=== PATIENT | female | born 1935 | race Caucasian/White ===

== ENCOUNTER 2023-07-10 07:52 | Emergency (ER) | payer MEDICARE, OTHER, SELFPAY ==
--- NOTE | ~2023-07-10 | US_ITS ---
EXAMINATION: US right upper quadrant DATE: 07/10/2023 08:51 INDICATION: Abdominal with pain TECHNIQUE: Multiple grayscale and Doppler ultrasound images of the abdomen were obtained. COMPARISON: None FINDINGS: The pancreatic head and body are normal in appearance. The pancreatic tail is not visualized. The vi sualized proximal abdominal aorta and inferior vena cava are normal. Liver has normal echogenicity an d contour, with a smooth surface. No liver lesion identified. No intrahepatic biliary duct dilation s uspected. Portal venous flow was seen in the hepatopetal, normal direction and has normal Doppler wav eform. The gallbladder is normal in appearance. There is no cholelithiasis. The common bile duct danie sures 5 mm, which is normal. Sonographic [place] sign was reported as negative by the ski instructor. IMPRESSION: 1. Normal right upper quadrant ultrasound. Reviewed, dictated and finalized at location B. 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
[2023-07-10 08:06] VITALS: BP 193/81; PULSE 74; RESP 20; TEMP 36.6; O2SAT 100
[2023-07-10 08:30] LABS: Alanine Aminotransferase 26 U/L (6-35); Albumin Level 4.4 g/dL (3.5-5.1); Alkaline Phosphatase 77 U/L (38-126); Anion Gap 6 mmol/L (8-16); Aspartate Amino Transferase 32 U/L (14-36); Basophils Percent Auto 0.4 % (0.2-1.2); Bilirubin,Total 0.9 mg/dL (0.2-1.3); Blood Urea Nitrogen 13 mg/dL (7-17); Calcium 9.6 mg/dL (8.4-10.2); Carbon Dioxide 26 mmol/L (22-30); Chloride 97 mmol/L (98-107); Eosinophils Absolute Auto 0.1 K/mm3 (0-0.3); Eosinophils Percent Auto 2.1 % (0-4.4); Estimated CRCL calculation 41 ml/min; Estimated Glomerular Filt Rate > 60; Glucose 112 mg/dL (65-110); Hematocrit 44.4 % (37.0-47.0); Hemoglobin 14.3 g/dL (12.0-15.0); Immature Granulocyte Absolute 0.01 K/mm3 (0.00-0.031); Immature Granulocyte Percent A 0.1 % (0-0.5); Lipase 322 U/L (23-300); Lymphocytes Absolute Auto 1.62 K/mm3 (0.9-3.2); Lymphocytes Percent Auto 24.1 % (18.3-44.2); Mean Corpuscular HGB Conc 32.2 g/dl (32-36); Mean Corpuscular Hemoglobin 28.5 pg (26-34); Mean Corpuscular Volume 88.6 fl (80-100); Mean Platelet Volume 9.6 fl (7.4-10.4); Monocytes Absolute Auto 0.6 K/mm3 (0.1-0.6); Monocytes Percent Auto 8.2 % (2.6-8.5); Neutrophils Absolute Auto 4.4 K/mm3 (1.3-6.7); Neutrophils Percent Auto 65.1 % (45.5-73.1); Platelet Count Result 375 k/mm3 (150-375); Potassium 3.8 mmol/L (3.4-5.0); Red Blood Count 5.01 M/mm3 (4.2-5.4); Sodium 129 mmol/L (137-145); White Blood Count 6.7 K/mm3 (4.5-10.0)
[2023-07-10 08:39] VITALS: BP 174/83; PULSE 73; RESP 12; O2SAT 100
[2023-07-10 09:16] LABS: Appearance Urine Turbid (Clear); Bacteria Urine 4+ /hpf; Bilirubin Urine Negative (Negative); Blood Urine Negative (Negative); Color Urine Yellow (Yellow); Glucose Urine UA Negative (Negative); Ketones Urine Negative (Negative); Leukocyte Esterase Ur Trace LEU/UL (Negative); Nitrate Urine Positive (Negative); Non Pathogenic Casts 0-2; Protein Urine Negative (Negative); RBC Urine 0-2 /hpf (0-2); Specific Grav Ur 1.012 (1.001-1.035); Squamous Epithelial Cell Urine None seen /hpf (Few); Urobilinogen Urine 0.2 mg/dL (<2.0)
[2023-07-10 09:18] LABS: Add Urine Microscopic? YES
[2023-07-10] MEDS: BELLADONNA ALK/PHENOB ELIX 10 ML, MAG HYDROX/ALUMINUM HYD/SIMETH 30 ML, LIDOCAINE HCL 2... PO (09:29)
[2023-07-10 09:30] VITALS: BP 172/68; PULSE 66; RESP 18; O2SAT 99
--- NOTE | 2023-07-10 09:45 | ED.GENADULT ---
HPI - General Adult General Chief complaint: Abdominal Pain Stated complaint: ABD PAIN Time Seen by Provider: 07/10/23 07:56 History of Present Illness HPI narrative: patient is an 88-year-old female who presents ER with epigastric abdominal pain. Ongoing for 1 week. She has tried some Tums without any real relief. She has had some minor acid reflux with this as well and is concerned that she may have an ulcer. She has no modification in her discomfort with eating or drinking. No radiation to her back. No fevers or chills or sweats. Denies urinary symptoms. Related Data Home Medications Medication Instructions Recorded Confirmed lisinopril 20 mg tablet 40 mg 07/10/23 Allergies Allergy/AdvReac Type Severity Reaction Status Date / Time No Known Allergies Allergy Unknown Verified 07/10/23 08:11 Review of Systems Review of Systems: All systems reviewed & are unremarkable except as noted in HPI and below Constitutional: Constitutional: Reports no additional constitutional complaints ENT: Reports system reviewed and no additional complaints, except as documented Cardiovascular: Cardiovascular: Reports no additional cardiovascular complaints Respiratory: Respiratory: Reports no additional respiratory complaints Gastrointestinal: Gastrointestinal: Reports abdominal pain, Denies diarrhea, Denies nausea and Denies vomiting Genitourinary: Genitourinary: Reports no additional female genitourinary complaints PMFSH Past Medical History Medical History (Updated 07/10/23 @ 09:50 by Man Fairbanks MD) Hypertension Surgical History Surgical History (Updated 07/10/23 @ 09:50 by Man Faribanks MD) History of hysterectomy Exam Narrative: GENERAL: Well-appearing, well-nourished, and in no acute distress. HEAD: Normocephalic, atraumatic. ENT: Mucous membranes moist. CHEST: Clear to auscultation. No respiratory distress. HEART: Regular rate and rhythm. Normal peripheral pulses. ABDOMEN: Soft, nontender, nondistended. EXTREMITIES: Normal range of motion. No edema. SKIN: Warm, dry, no rash. NEURO: Alert and oriented x3. PSYCH: Normal mood and affect. Course Course Emergency Course: -Course: no issues. -Co-morbidities complicating care: Advanced age -Social determinants of health: lives at home -External Chart Review: none -Hx from independent Sources: patient -Independent interpretation of studies: UA consistent with UTI. No gallstones. -Interventions: GI cocktail -Shared decision making / Disposition: discharge home with oral antibiotic. Patient will start pantoprazole after finishing her antibiotics. Vital Signs Vital signs: Vital Signs Temperature 97.8 F 07/10/23 08:06 Pulse Rate 74 07/10/23 08:06 Respiratory Rate 20 07/10/23 08:06 Blood Pressure 193/81 H 07/10/23 08:06 Pulse Oximetry 100 07/10/23 08:06 Oxygen Delivery Room Air 07/10/23 08:06 Temperature 97.8 F 07/10/23 08:06 Pulse Rate 66 07/10/23 09:30 Respiratory Rate 18 07/10/23 09:30 Blood Pressure 172/68 H 07/10/23 09:30 Pulse Oximetry 99 07/10/23 09:30 Oxygen Delivery Room Air 07/10/23 08:06 Medical Decision Making Vital Signs Vital Signs: Vital Signs Temperature 97.8 F 07/10/23 08:06 Pulse Rate 74 07/10/23 08:06 Respiratory Rate 20 07/10/23 08:06 Blood Pressure 193/81 H 07/10/23 08:06 Pulse Oximetry 100 07/10/23 08:06 Oxygen Delivery Room Air 07/10/23 08:06 Temperature 97.8 F 07/10/23 08:06 Pulse Rate 66 07/10/23 09:30 Respiratory Rate 18 07/10/23 09:30 Blood Pressure 172/68 H 07/10/23 09:30 Pulse Oximetry 99 07/10/23 09:30 Oxygen Delivery Room Air 07/10/23 08:06 Lab Data 07/10/23 08:14 07/10/23 08:14 Labs: Lab Results 07/10/23 07/10/23 Range/Units 08:14 09:02 WBC 6.7 (4.5-10.0) K/mm3 RBC 5.01 (4.2-5.4) M/mm3 Hgb 14.3 (12.0-15.0) g/dL Hct 44.4
== END 2023-07-10 09:56 | disposition home or self-care (01) ==
PROVIDERS: Emergency Provider Emergency Medicine
DX: N39.0 Urinary tract infection, site not specified (principal); I10 Essential (primary) hypertension; Z90.710 Acquired absence of both cervix and uterus
CPT/HCPCS: 36415; 76705; 80053; 81001; 83690; 85025; 87086; 99284; A9270

== ENCOUNTER 2024-01-22 08:44 | Emergency (ER) | payer MEDICARE, OTHER, SELFPAY ==
--- NOTE | 2024-01-22 08:52 | ED.SKABFB ---
HPI - Skin/Abscess/Foreign Bdy General Chief complaint: Skin/Abscess/Foreign Body Stated complaint: RT Side of face redness History of Present Illness HPI narrative: Patient is an 88-year-old female, Past medical history significant for hypertension, hyperlipidemia and thyroid dysfunction, presents to [facility] with a eczematous rash to the right cheek that she noticed 4 days ago. She denies any associated itching, tenderness, drainage or crusting. She has been applying topical [id number] antibiotic ointment without much improvement. She has no history of similar rash eruption, she has no additional complaints today. She has not attempted any other modifying factors. She is traveling to [place] next week and wants to ensure the rash is resolved before departure. Related Data Home Medications Medication Instructions Recorded Confirmed atorvastatin 40 mg tablet 40 mg PO DAILY 01/22/24 01/22/24 cyclosporine 0.05 % eye drops in a 2 drp EACH EYE DAILY 01/22/24 01/22/24 dropperette hydrochlorothiazide 50 mg tablet 50 mg PO DAILY 01/22/24 01/22/24 levothyroxine 75 mcg tablet 75 mcg PO DAILY 01/22/24 01/22/24 (Synthroid) lisinopril 40 mg tablet 40 mg PO DAILY 01/22/24 01/22/24 loteprednol etabonate 0.5 % eye 1 drp EACH EYE HS 01/22/24 01/22/24 gel drops Allergies Allergy/AdvReac Type Severity Reaction Status Date / Time No Known Allergies Allergy Unknown Verified 01/22/24 08:51 Review of Systems Integumentary/Breasts: Comments: refer to [facility] Past Medical History Medical History (Updated 01/22/24 @ 09:11 by MARCUS Hager) Hypertension Surgical History Surgical History (Updated 07/10/23 @ 09:50 by Man Fairbanks MD) History of hysterectomy Exam Const: General: healthy appearing and no acute distress Nutritional Appearance: well nourished Orientation/consciousness: patient oriented x3 Limitations: no limitations HENMT: Head: normal to inspection Ears: external ears normal ( Patient scratch the right inner arm recall this morning, abrasion present) Face/Nose/Sinus: Normal external nose present and Normal nares present Face and sinus: sinuses nontender Mouth: Yes Normal oral and palatal mucosa present Throat: posterior oropharynx normal Eyes: Conjunctivae: conjunctivae normal Pupils: Equal, round and reactive pupils present EOM: EOMs intact bilaterally Direct Ophthalmoscopy: no photophobia Neck: Neck: normal visual inspection, no lymphadenopathy and no meningeal signs Resp: Effort & Inspection: normal respiratory effort Cardio: Rate: regular rate Rhythm: regular rhythm Skin: General skin exam: normal color Wounds: no wounds Other: patient has an eczematous eruption to the right cheek, dry and flaky in nature, with 2 additional small areas of rash or eruption in close proximity. There are no pustules, no vesicles, no tenderness to palpation. There is no surrounding erythema or lymphangitis. No swelling appreciated. No other skin surface have similar options. Neuro: General: patient oriented x3, moves all extremities, no meningeal signs, no focal motor deficits and CN's II-XI intact bilaterally Cranial nerves: Yes Nystagmus not present Speech: normal speech Gait exam (Neuro): Normal gait present Course Course Emergency Course: Patient's rash appears eczematous in nature. plan to prescribe a short course of topical clobetasol, high potency steroid. She may apply twice daily for no more than 1 week. If the rash worsens, or changes in appearance, she is to follow up here or with her primary care provider. She is also encouraged to apply Aquaphor or Vaseline between applications of steroids for resolution. Patient verbalized understanding she is agreeable plan of care. Level of Care: Express Care Visit ([id number]) Vital Signs Vital signs: Vital Signs Temperature 36.2 C L 01/22/24 08:57 Pulse Rate 84 01/22/24 08:57 Respiratory Rate 18 01/11
[2024-01-22 08:57] VITALS: BP 179/68; PULSE 84; RESP 18; TEMP 36.2; O2SAT 100
== END 2024-01-22 09:13 | disposition home or self-care (01) ==
PROVIDERS: Emergency Provider Nurse Practitioner Family
DX: L30.9 Dermatitis, unspecified (principal); I10 Essential (primary) hypertension; E78.5 Hyperlipidemia, unspecified; E07.9 Disorder of thyroid, unspecified
CPT/HCPCS: 99213; G0463

== ENCOUNTER 2024-12-03 08:12 | Emergency (ER) | payer MEDICARE, OTHER, SELFPAY ==
--- NOTE | 2024-12-03 08:13 | ED_ITS ---
HPI - Female Genitourinary General Chief complaint: Urogenital-Female Stated complaint: uti Time Seen by Provider: 12/03/24 08:13 Source: patient Mode of arrival: ambulatory Limitations: no limitations History of Present Illness HPI Narrative: Ana Luisa is a an 89-year-old female patient presenting to the clinic today with complaints of burning, frequency, urgency, and feeling fatigued x 4days. She reports no fevers, chills, body aches, nausea, vomiting, abdomen pain, or flank pain. States she is having increased urination with decreased output. Was having nocturia and that is not normal for her. Has not taken any medications to treat her symptoms. Related Data Home Medications ?Medication ?Instructions ?Recorded ?Confirmed ?Last Taken ?Type atorvastatin 40 mg tablet 40 mg PO DAILY 01/22/24 01/22/24 Unknown History cyclosporine 0.05 % eye drops in a 2 drp EACH EYE DAILY 01/22/24 01/22/24 Unknown History dropperette hydrochlorothiazide 50 mg tablet 50 mg PO DAILY 01/22/24 01/22/24 Unknown History levothyroxine 75 mcg tablet 75 mcg PO DAILY 01/22/24 01/22/24 Unknown History (Synthroid) lisinopril 40 mg tablet 40 mg PO DAILY 01/22/24 01/22/24 Unknown History loteprednol etabonate 0.5 % eye 1 drp EACH EYE HS 01/22/24 01/22/24 Unknown History gel drops Allergies Allergy/AdvReac Type Severity Reaction Status Date / Time No Known Allergies Allergy Unknown Verified 12/03/24 08:30 Review of Systems Review of Systems: Pertinent positives per HPI. Patient denies any fever, chills, rash, headache, visual changes, dizziness, cough, runny nose, sore throat, shortness of breath, chest pain, palpitations, nausea, vomiting, diarrhea, constipation, abdominal pain. [facility] Past Medical History Medical History (Updated 12/03/24 @ 08:53 by Devonte Padilla APRN) Hypertension Surgical History Surgical History (Updated 07/10/23 @ 09:50 by Man Fairbanks MD) History of hysterectomy Comments At the time of my signature, I reviewed and agree with the nursing past medical, surgical, social, and family history. There is no relevant family history pertinent to the patient complaint. Exam Narrative: General: Well-developed, well nourished, in no apparent distress. Head: Normocephalic, atraumatic. Cardio: Regular rate and rhythm, s1 and s2 normal, no murmur appreciated. Resp: Clear to auscultation bilaterally, no rhonchi, rales, wheezing or rubs. Abdomen: Soft, pliable, bowel sounds present in all quadrants, non-tender to palpation, no organomegly, no CVAT tenderness. Course Course Emergency Course: Portions of this record may have been created with voice recognition software. Level of Care: Express Care Visit Vital Signs Vital signs: Vital Signs Temperature 36.1 C L 12/03/24 08:36 Pulse Rate 78 12/03/24 08:36 Respiratory Rate 18 12/03/24 08:36 Blood Pressure 116/81 12/03/24 08:36 Pulse Oximetry 98 12/03/24 08:36 Oxygen Delivery Room Air 12/03/24 08:36 Temperature 36.1 C L 12/03/24 08:36 Pulse Rate 78 12/03/24 08:36 Respiratory Rate 18 12/03/24 08:36 Blood Pressure 116/81 12/03/24 08:36 Pulse Oximetry 98 12/03/24 08:36 Oxygen Delivery Room Air 12/03/24 08:36 Vital signs reviewed MDM - Female Genitourinary MDM Narrative Medical decision making narrative: At the time of visit patient is resting comfortably on the exam table. Patient appears to be nontoxic. C/o burning, frequency, urgency, and feeling fatigued x 4 days. She reports no fevers, chills, body aches, nausea, vomiting, abdomen pain, or flank pain. States she is having increased urination with decreased output. Was having nocturia and that is not normal for her. Urinalysis ordered. Labs: Urinalysis positive for leukocytes and blood. We will send urine for culture. Plan: I suspect patient has UTI. Prescription for cephalexin was sent to the pharmacy. Supportive measures were discussed with the patient and they voiced understanding discharge instructions and agrees to treatment plan. Return precautions reviewed Differential Diagnosis Differential diagnosis: Likely urinary tract infection and cystitis Lab Data Labs: Lab Results 12/03/24 Range/Units 08:37 POC Urine Color Yellow POC Urine Clarity Clear POC Urine pH 7.0 POC Ur Specif [place] 1.015 POC Urine Protein Negative (Negative) POC Ur Glucose (UA) Negative (Negative) POC Urine Ketones Negative (Negative) POC Urine Blood 1+ (Negative) POC Urine Nitrite Negative (Negative) POC Urine Bilirubin Negative (Negative) POC Urine Urobilinogen 0.2 POC U Leukocyte Esteras 1+ (Negative) ECG Data EKG #1: Attestation: I personally reviewed and interpreted this ECG as follows: ECG completion date: 12/03/24 ECG completion time: 08:41 Interpretation: EKG shows sinus bradycardia with sinus rhythm with a heart rate of 50 beats per minute. No ST elevation, depression, or T-wave inversion noted. [place] interval is 135 milliseconds, QRS durations 85 milliseconds, QT-QTC is 452-427 milliseconds, P-R-T axis 29 78 40 Discharge Plan Discharge Clinical Impression: Urinary tract infection Qualifiers: Urinary tract infection type: acute cystitis Hematuria presence: with hematuria Qualified Code(s): N30.01 - Acute cystitis with hematuria Patient Disposition: Home Condition: Stable Instructions: Antibiotic Form, Urinary Tract Infection in Older Adults (ED) Additional Instructions: Urinalysis positive for leukocytes and blood. We will send urine for culture. Take cephalexin as prescribed Increase fluids and stay well hydrated Wipe front to back. May use wet wipes. Avoid tub baths If sexually active- pee before and after intercourse. Wear cotton panties Avoid tight clothing up against the genitals Follow up with your PCP in 1 week if symptoms persist. Patient Language: South Sudanese Prescriptions: New cephalexin 500 mg capsule 500 mg PO Q12H 7 Days Qty: 14 0RF No Action atorvastatin 40 mg tablet 40 mg PO DAILY hydrochlorothiazide 50 mg tablet 50 mg PO DAILY levothyroxine [Synthroid] 75 mcg tablet 75 mcg PO DAILY lisinopril 40 mg tablet 40 mg PO DAILY cyclosporine 0.05 % dropperette 2 drp EACH EYE DAILY loteprednol etabonate 0.5 % drops,gel 1 drp EACH EYE HS clobetasol 0.05 % cream 1 applic topical BID 14 Days Qty: 15 0RF Follow-up/Referrals: [facility], [Primary Care Provider] - Time of Disposition: 08:53 Quality NIHSS Nursing Documentation ED NIHSS nursing documentation: reviewed/agree
--- OUTSIDE RECORDS SUMMARY | 2024-12-03 08:16 | XMS_ITS | Clinical Summary ---
Author Organization [facility] [employer] Address [address] [place] [address] Care Team Providers Care Lead Programmer Name Role Phone Sina Murillo DO Primary Care Provider [phone] Source Comments [facility] [employer],non-owned Affiliates and Associated Physician Practices is amultiple site organization consisting of ambulatory clinics and hospital sitesin [place], [place], [place] and [place]. This disclosure is being madepursuant to the Care Everywhere program and may not contain all information available regarding this patient. Last updated 18.[facility] [employer] Allergies No known active allergies Medications * Be aware that medications may not be up to date on this document. Alwaysverify current medications with the patient. levothyroxine (SYNTHROID) 75 MCG tablet Take 1 (one) tablet by mouth daily before breakfast Active hydroCHLOROthia zide (Hydrodiuril) 50 MG tablet 4 Active lisinopril (Prinivil; Zestril) 40 MG tablet 4 Active Active Problems Problem Noted Date Diagnosed Date Actinic keratosis 04/02/2019 Arthritis 04/02/2019 Overview (04/02/2019): F/U with rheumatology. Continue to remain active. 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 Pre-op labs and lipids ordered Depression 04/02/2019 Overview (04/02/2019): Well controlled Gastric ulcer 04/02/2019 Hammer toe 04/02/2019 Hyperlipoproteinemia 04/02/2019 Overview (04/02/2019): Well controlled. Hypertension 04/02/2019 Overview (04/02/2019): Good control on home BP's Will continue current meds. Hypothyroidism 04/02/2019 Overview (04/02/2019): Will check TSH Insomnia 04/02/2019 Overview (04/02/2019): Will refill Ambien 10mg tabs #30, RF5 to be used prn. 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 Gender Identity Not on file Sexual Orientation Not on file Last Filed Vital Signs Vital Sign Reading Time Taken Comments Blood Pressure 156/78 03/11/2024 9:46 AM CDT Pulse 71 09/23/2012 11:52 AM CDT Temperature 36 C (96.8 F) 09/23/2012 11:52 AM CDT Respiratory Rate 18 09/23/2012 11:5 2 AM CDT Oxygen Saturation 96% 09/23/2012 11: 52 AM CDT Inhaled Oxygen Concentration - - Weight 59.8 kg (131 lb 14.4 oz) 024 9:46 AM CDT Height 170.2 cm (5' 7) 03/11/2024 9:46 AM CDT Body Mass Index 20.66 03/11/2024 9:46 AM CDT Plan of Treatment Health Maintenance Due Date Last Done Comments MEDICARE AWV 12 MONTHS 1935 DTAP/TDAP/TD VACCINES (1 - Tdap) 1954 PNEUMOCOCCAL VACCINE 50+ (1 of 1 - PCV) 1985 ZOSTER VACCINE (1 of 2) 1985 Respiratory Syncytial Virus (RSV) Vaccine Pt: or over 60 yrs (1 - 1-dose 75+ series) 2010 COVID-19 VACCINE ( season) 2024 01/30/2023, 02/15/2022, 10/17/2021, Additional history exists DEPRESSION SCREENING 05/13/2024 INFLUENZA VACCINE (#1) 2025 3, 02/04/2022, 01/24/2021, Additional history exists BONE DENSITY TESTING Completed 05/26/2018 HEPATITIS B VACCINE Aged Out No longe r eligible based on patient's age to complete this topic HIB VACCINE Aged Out No longer eligi ble based on patient's age to complete this topic HPV VACCINE Aged Out No longer eligi ble based on patient's age to complete this topic MENINGOCOCCAL (Group B) VACCINE SHARED DECISION-MAKING Aged Out No longer eligible based on patient's age to complete this topic MENINGOCOCCAL GROUPS A/C/Y/W VACCINE Aged Out No longer eligible based on patient's age to complete this topic Medical Devices Implanted Type Area Cracking Machine Operator Device Identifier Shelf Expiration Date Model / Serial / Lot Dev Sys Sgl Obtryx (Aka Tape Obtryx System Curved) - [id number] Implanted:Qty: 1 on 09/09/2012 by Kaylee Bullard MD at [facility] Mesh N/A: Vagina 05/11/2015 [id number] / [id number] / [id number] Grft Tiss Rep Xenform 4 X 7cm Implanted:Qty: 1 on 09/09/2012 by Kaylee Bullard MD at [facility] Vagina [employer] 12/09/2014 [id number] / / [id number] Description:ref # [id number], Soft Percuflex Stent Implanted:Qty: 1 on 09/09/2012 by Rebel Dobson MD at [facility] Left: Ureter 03/12/2014 [id number] / / [id number] Insurance MEDICARE MEDICARE Advance Directives * FULL RESUSCITATION (Latest Code Status on File) Date Activated Date Inactivated Comments 09/22/2012 2:11 AM 09/23/2012 5:57 PM * FULL RESUSCITATION Date Activated Date Inactivated Comments 09/09/2012 11:00 PM 09/11/2012 1:41 PM Care Teams Lead Programmer Relationship Specialty Start Date End Date Sina Murillo DO [address] [id number] PCP - General Family Medicine 03/11/24
--- OUTSIDE RECORDS SUMMARY | 2024-12-03 08:16 | XMS_ITS | Continuity of Care Document ---
Author Organization [facility] Address [address] [place] [address] [place] [address] Phone Care Team Providers Care School Psychology Specialist Name Role Phone Recinos OD, Joel Unavailable Unavailable Procedures Procedure Date Eye Exam & Treatment Refraction Office/outpatient Visit, [facility] Advance Directives Directive Yes / No Effective Date File Name No Information Encounters Encounter Description Practice Location Reason(s) For Visit Diagnoses Date Provider Providers Copied on Encounter [facility], [address] [place] [address] [address], [place], [place], [id number], tel:[phone] [facility] No Information 7-201 0 Recinos OD Joel. [address] , [address], [place], [place], [facility], [place]. tel:[phone] Office/outpat ient Visit, [facility], [address] [place] [address] [address], [place], [place], [id number], tel:[phone] [facility] No Information 1-201 0 Doisy Edward. [address] , [address], [place], [address], [place]. tel:[phone] Family History Family Member Type Diagnosis Age At Onset No Information Payers Payer name Insurance type Covered republican ID Authoriza tion(s) Medicare [facility] [id number] For Life Mdcr Supp CI [id number] Social History Type Description Quantity Date Captured Comments Sex Female Smoking Status No Information Chief Complaint And Reason For Visit No Information Reason For Referral Reason For Referral No Information History Of Present Illness Encounter Date Complaint History Of Prese nt Illness No Information Functional Status Date Functional Assessmen t No Information Instructions Date Instruction Additional Infor mation No Information Assessments Type Assessment Date No Information Patient Care Teams Name Effective Dates (start - stop) Status Members No Information
--- OUTSIDE RECORDS SUMMARY | 2024-12-03 08:16 | XMS_ITS | Clinical Summary ---
Author Organization [facility] Address [address] [place] [id number] Care Team Providers Care Hot Roll Inspector Name Role Phone Unavailable Primary Care Provider Unavailabl e Social History Tobacco Use Types Packs/Day Years Used Date Smoking Tobacco: Never Assessed Comments Unknown Sex and Gender Information Value Date Recorded Sex Assigned at Not on file Legal Sex Female 6:27 AM CDT Gender Identity Not on file Sexual Orientation Not on file Plan of Treatment Health Maintenance Due Date Last Done Comments DTaP, Tdap and Td Vaccines ( 1 - Tdap) 1954 Pneumococcal Vaccine: 50+ Ye ars (1 of 1 - PCV) 1985 Zoster Vaccines (1 of 2) 1985 Annual Medicare Wellness Visit 02/13/2000 RSV Immunization or 60+ Years (1 - 1-dose 75+ series) 2010 COVID-19 Vaccine ( - 2023-2 5 season) 2024 Meningococcal B Vaccine Aged Out No l onger eligible based on patient's age to complete this topic Meningococcal Vaccine Aged Out No antoine ej eligible based on patient's age to complete this topic RSV Immunizations Under 20 Months Aged Out No longer eligible based on patient's age to complete this topic Insurance HUMANA MEDICARE MEDICARE HUMANA
--- OUTSIDE RECORDS SUMMARY | 2024-12-03 08:16 | XMS_ITS | Continuity of Care Document ---
Author Organization [facility] Address [address] [place] [address] Phone Care Team Providers Care Rn Case Manager Hospice Name Role Phone Migue Santiago MD Unavailable Unavailable Allergies, Adverse Reactions, Alerts Substance Reaction Status Criticality No Known Allergies Active No Inform ation Medications Medication Instructions Dosage Effective Dates (start - stop) Status Comments Edwards 5 mg-325 mg tablet take 1 tablet by oral route every 6 hours as needed for pain - Active LISINOPRIL (unknown strength) Not Available - Active ZOLOFT (unknown strength) Not Available - Active SIMVASTATIN (unknown strength) Not Available - Active Procedures Procedure Date OFFICE/OUTPATIENT VISIT NEW OFFICE/OUTPATIENT VISIT EST OFFICE/OUTPATIENT VISIT EST Advance Directives Directive Yes / No Effective Date File Name No Information Encounters Encounter Description Practice Location Reason(s) For Visit Diagnoses Date Provider Providers Copied on Encounter OFFICE/OUTPA TIENT VISIT [facility], [address] [place] [address], [facility], [phone] [facility] Follow Up of Left Ring finger (chief complaint) Degenerative arthritis of finger, left 6 Pamela Camarena. [address] [place], [place], [id number] . tel: [phone] OFFICE/OUTPA TIENT VISIT EST [facility], [address] [place] [address], [facility], tel:[phone] [facility] Degenerative arthritis of finger, rightDegenerati ve arthritis of finger, left 0 6 Pamela Camarena. [address] [place], [place], [id number] . tel: [phone] OFFICE/OUTPA TIENT VISIT EST [facility], [address], [place], [address], [place] tel:[phone] [facility] [place] Arthritis of hand, degenerative [address]ju[address]. [address], [place], [place], [id number] , [place]. tel: [phone] Family History Family Member Type Diagnosis Age At Onset Daughter Problem (finding) Alive and well Payers Payer name Insurance type Covered alliance party ID Authoriza tion(s) Medicare E2 OT [id number] For Life OT [id number] Social History Type Description Quantity Date Captured Comments Alcohol Use Details Unknown Caffeine Use Details Unknown Tobacco Use Status No Information Smoking Status No Information Sex Female Chief Complaint And Reason For Visit From encounter dated '04/16/2016 10:30'. Follow Up of Left Ring finger (chief complaint) Reason For Referral Reason For Referral No Information Plan Of Treatment Date Type Action Status Referral Ordered: RADEX FNGR MINIMUM 2 VIEWS RT ordered Referral Ordered: RADEX FNGR MINIMUM 2 VIEWS LT ordered Referral Ordered: RADEX WRST COMPL MINIMUM 3 VIEWS RT ordered History Of Present Illness Encounter Date Complaint History Of Prese nt Illness Follow Up of Left Ring finger Functional Status Date Functional Assessmen t No Information Instructions Date Instruction Additional Infor mation apply heating pad or ice as tolerated Related to Degenerative arthritis of finger, left Assessments Type Assessment Date assessment Degenerative arthritis of finger , left Patient Care Teams Name Effective Dates (start - stop) Status Members No Information
--- OUTSIDE RECORDS SUMMARY | 2024-12-03 08:19 | XMS_ITS | Continuity of Care Document ---
Author Organization [facility] Address [address] [place] [address] Phone Care Team Providers Care Property Management Assistant Name Role Phone Migue Santiago MD Unavailable Unavailable Allergies, Adverse Reactions, Alerts Substance Reaction Status Criticality No Known Allergies Active No Inform ation Medications Medication Instructions Dosage Effective Dates (start - stop) Status Comments [place] 5 mg-325 mg tablet take 1 tablet [...] Providers Copied on Encounter OFFICE/OUTPA TIENT VISIT [facility], [address] [place] [address], [facility], [phone] [facility] Follow Up of Left Ring finger (chief complaint) Degenerative arthritis of finger, left 6 Pamela Camarena. [address] [place], [place], [id number] . tel: [phone] OFFICE/OUTPA TIENT VISIT EST [facility], [address] [place] [address], [facility], tel:[phone] [facility] Degenerative arthritis of finger, rightDegenerati ve arthritis of finger, left 0 6 Pamela Camarena. [address] [place], [place], [id number] . tel: [phone] OFFICE/OUTPA TIENT VISIT EST [facility], [address], [place], [address], [place] tel:[phone] [facility] [place] Arthritis of hand, degenerative [address]. [address], [place], [place], [id number] , [place]. tel: [phone] Family History Family Member Type Diagnosis Age At Onset Daughter Problem (finding) Alive and well Payers Payer name Insurance type Covered libertarian ID Authoriza tion(s) Medicare E2 OT [id number] For Life OT [id number] Social History Type Description Quantity Date Captured [...]
--- OUTSIDE RECORDS SUMMARY | 2024-12-03 08:19 | XMS_ITS | Continuity of Care Document ---
Author Organization [facility] Address [address] [place] [address] [phone] Phone Care Team Providers Care Wire Communications Engineer Name Role Phone Recinos OD, Joel Unavailable Unavailable Procedures Procedure Date Eye Exam & Treatment Refraction Office/outpatient Visit, [facility] Advance Directives Directive Yes / No Effective Date File Name No Information Encounters Encounter Description Practice Location Reason(s) For Visit Diagnoses Date Provider Providers Copied on Encounter [facility], [address] [place] [address] [address], , [id number], tel:[phone] [facility] No Information 7-201 0 Recinos OD Joel. [address], [place], [place], [facility], [place]. tel:[phone] Office/outpat ient Visit, [facility], [address] [place] [address] [address], , [id number], tel:[phone] [facility] No Information 1-201 0 Doisy Edward. [address] , [address], [place], [address], [place]. tel:[phone] Family History Family Member Type Diagnosis Age At Onset No Information Payers Payer name Insurance type Covered green party ID Authoriza tion(s) Medicare [facility] [id number] For Life Mdcr Supp CI [id number] Social History Type Description Quantity Date Captured [...]
[2024-12-03 08:36] VITALS: BP 116/81; PULSE 78; RESP 18; TEMP 36.1; O2SAT 98
[2024-12-03 08:39] LABS: EDUAAPPEAR Clear; EDUABILI Negative (Negative); EDUABLOOD 1+ (Negative); EDUACOLOR1 Yellow; EDUAGLUCOSE Negative (Negative); EDUAKETONE Negative (Negative); EDUALEUKO 1+ (Negative); EDUANITRATE Negative (Negative); EDUAPH 7.0; EDUAPROTEIN Negative (Negative); EDUASPGRAVITY 1.015; EDUAUROBILI 0.2
== END 2024-12-03 09:10 | disposition home or self-care (01) ==
PROVIDERS: Emergency Provider Nurse Practitioner Family
DX: N30.01 Acute cystitis with hematuria (principal); I10 Essential (primary) hypertension
CPT/HCPCS: 81003; 87086; 99213; G0463